=== PATIENT | male | born 1985 | race Hispanic/Latino ===

== ENCOUNTER 2018-02-24 19:06 | Emergency (ER) | payer OTHER ==
[2018-02-24] MEDS ORDERED: PROPARACAINE/FLUORESCEIN SOD 100 DROP/5 ML BOTTLE OU STA (19:35)
--- NOTE | 2018-02-24 19:41 | ED PDOC ---
HPI: Eye Injury/Pain Time Seen by Provider: 02/24/18 19:39 Chief Complaint (Nursing): Eye Problem Chief Complaint (Provider): LEFT EYE INJURY History Per: Patient (33 Y/O MALE HERE WITH LEFT EYE INJURY TODAY. PATIENT STATES HE WAS PLAYING BASKETBALL WHEN SOMEONE'S FINGER WENT INTO HIS EYE. NO CHANGE IN VISION. NOTES REDNESS OF MEDIAL ASPECT OF EYE. WEARS GLASSES.) Past Medical History Reviewed: Historical Data, Nursing Documentation, Vital Signs Vital Signs: Last Vital Signs Temp 98.0 F 02/24/18 19:13 Pulse 87 02/24/18 19:13 Resp 16 02/24/18 19:13 BP 117/69 02/24/18 19:13 Pulse Ox 98 02/24/18 19:13 - Family History Family History: States: No Known Family Hx - Home Medications Home Medications: Ambulatory Orders Medication Instructions Recorded Ciprofloxacin 0.3% [Ciloxan 0.3% 1 drop OS QID #1 bottle 02/24/18 Ophth SOLN] - Allergies Allergies/Adverse Reactions: Allergies Allergy/AdvReac Type Severity Reaction Status Date / Time No Known Allergies Allergy Verified 02/24/18 19:35 Review of Systems ROS Statement: Except As Marked, All Systems Reviewed And Found Negative Physical Exam - Reviewed Nursing Documentation Reviewed: Yes Vital Signs Reviewed: Yes (left 20/20;right 20/20; both 20/20) - Physical Exam Appears: Positive for: Well, Non-toxic, No Acute Distress Head Exam: Positive for: ATRAUMATIC, NORMAL INSPECTION, NORMOCEPHALIC Skin: Positive for: Normal Color, Warm, DRY Eye Exam: Positive for: Normal appearance (MEDIAL ASPECT OF LEFT EYE WITH CORNEAL INJURY NOTED. ecchymosis noted medial aspect eye. no fluorescein uptake ), EOMI, PERRL ENT: Positive for: Normal ENT Inspection Neck: Positive for: Normal, Painless ROM Cardiovascular/Chest: Positive for: Regular Rate, Rhythm Respiratory: Positive for: CNT, Normal Breath Sounds Gastrointestinal/Abdominal: Positive for: Normal Exam, Soft Back: Positive for: Normal Inspection Extremity: Positive for: Normal ROM Neurologic/Psych: Positive for: Alert, Oriented - ECG O2 Sat by Pulse Oximetry: 98 - Progress ED Course And Treament: Tdap 0.5 ml IM x 1 dose d/w DR. Siu. Will see patient tomorrow at 9am Disposition - Clinical Impression Clinical Impression: Corneal injury - Patient ED Disposition Is Patient to be Admitted: No - Disposition Referrals: Jose Elias Siu MD [Staff Provider] - Disposition: Routine/Home Disposition Time: 20:11 Condition: FAIR Additional Instructions: FOLLOW UP WITH DR. SIU TOMORROW AT 9AM Prescriptions: Ciprofloxacin 0.3% [Ciloxan 0.3% Ophth SOLN] 1 drop OS QID #1 bottle Instructions: Corneal Abrasion (DC) Forms: [facility] [facility] (Persian)
[2018-02-24] MEDS ORDERED: Tdap Vaccine 0.5 ml Vial (10-64 yrs) IM ONE (19:42)
[2018-02-24 20:20] VITALS: BP 118/76; PULSE 76; RESP 18; TEMP 98
[2018-02-24 21:48] VITALS: O2SAT 98
== END 2018-02-24 20:42 | disposition home or self-care (01) ==
LOC: H.ER 19:06
DX: S05.8X2A Other injuries of left eye and orbit, initial encounter (principal); W50.0XXA Accidental hit or strike by another person, initial encounter; Y93.67 Activity, basketball